=== PATIENT | female | born 1955 | race Caucasian/White ===

== ENCOUNTER 2024-01-12 09:38 | Day surgery (SDC) | payer BC, OTHER ==
[2024-01-10 15:17] VITALS: BMI 22.6
[2024-01-12] MEDS ORDERED: MIDAZOLAM HCL 2 MG/2 ML SINGLE DOSE VIAL ONE (09:41)
[2024-01-12] MEDS ORDERED: LIDOCAINE HCL/PF 2% SDV 5ML VIAL ONE ×2 (09:43)
[2024-01-12] MEDS ORDERED: PROPOFOL 20 ML ONE (09:47)
[2024-01-12] MEDS ORDERED: BUPIVACAINE HCL/PF 0.5% (5 MG/ML) 30 ML VIAL IJ ONE (10:08)
[2024-01-12] MEDS ORDERED: BUPIVACAINE HCL/PF 0.5% (5MG/ML) 10 ML VIAL ONE (10:09)
[2024-01-12] MEDS ORDERED: ROPIVACAINE HCL 0.5% 30ML VIAL ONE (10:13)
[2024-01-12] MEDS ORDERED: ceFAZolin SODIUM 1 GM VIAL ONE (11:17)
[2024-01-12 13:35] VITALS: BP 140/70; PULSE 85; RESP 19; TEMP 97.4
== END 2024-01-12 13:35 | disposition home or self-care (01) ==
LOC: FASU 09:38
PROVIDERS: ATTEND Orthopaedic Surgery Hand Surgery
PROC: 0LS50ZZ Reposition Right Lower Arm and Wrist Tendon, Open Approach (ICD-10-PCS; 2024-01-12)
PROC: 0PSH04Z Reposition Right Radius with Internal Fixation Device, Open Approach (ICD-10-PCS; principal; 2024-01-12 11:31)
DX: S52.571A Other intraarticular fracture of lower end of right radius, initial encounter for closed fracture (principal); X58.XXXA Exposure to other specified factors, initial encounter; Y93.9 Activity, unspecified; Y92.9 Unspecified place or not applicable
CPT/HCPCS: 25290; 25609; C1713; 73110-TC-RT-FY; 73130-TC-RT-FY; 82962